=== PATIENT | female | born 1980 ===

== ENCOUNTER 2019-02-10 15:29 | Inpatient (IN) | payer OTHER ==
--- NOTE | 2019-02-10 16:31 | ED PDOC ---
HPI: Psych/Substance Abuse Time Seen by Provider: 02/10/19 15:35 Chief Complaint (Nursing): Psychiatric Evaluation Chief Complaint (Provider): Delusions History Per: Patient History/Exam Limitations: no limitations Additional Complaint(s): Patient is a 38 year old female with no past medical history, who was brought to the emergency department by EMS for delusions. According to EMS, patient was reporting to her obstetrics gyn that there were demons in her home and that her child the obstetrics gyn was taking care of was . Patient denies saying any of this when asked and further denies any suicidal or homicidal ideation, voices in her head, or drug or alcohol use. She further reports that she has not been able to sleep because there are people that are telling her that she is a terrible person and that she is not a good mother. Patient is unable to clarify who these people are however. She further elaborates on having poor sleep because she has two jobs to support her family. Patient has no known history of psychiatric illness. PMD: [place] Past Medical History Reviewed: Historical Data, Nursing Documentation, Vital Signs Vital Signs: Last Vital Signs Temp 98.0 F 02/10/19 15:30 Pulse 98 H 02/10/19 15:30 Resp 16 02/10/19 15:30 BP 134/83 02/10/19 15:30 Pulse Ox 98 02/10/19 15:30 - Medical History PMH: No Chronic Diseases - Surgical History Other surgeries: hysterectomy - Family History Family History: States: No Known Family Hx - Immunization History Hx Tetanus Toxoid Vaccination: No Hx Influenza Vaccination: No Hx Pneumococcal Vaccination: No - Home Medications Home Medications: Ambulatory Orders Medication Instructions Recorded No Known Home Med 02/10/19 - Allergies Allergies/Adverse Reactions: Allergies Allergy/AdvReac Type Severity Reaction Status Date / Time No Known Allergies Allergy Verified 02/10/19 15:30 Review of Systems ROS Statement: Except As Marked, All Systems Reviewed And Found Negative Psych: Positive for: Psychosis. Negative for: Suicidal ideation (homicidal ideation) Physical Exam - Reviewed Nursing Documentation Reviewed: Yes Vital Signs Reviewed: Yes - Physical Exam Appears: Positive for: No Acute Distress Head Exam: Positive for: ATRAUMATIC, NORMOCEPHALIC Skin: Positive for: Warm, Dry Eye Exam: Positive for: EOMI ENT: Positive for: Normal ENT Inspection. Negative for: Pharyngeal Erythema, Tonsillar Exudate Neck: Positive for: Painless ROM, Supple Cardiovascular/Chest: Positive for: Regular Rate, Rhythm. Negative for: Murmur Respiratory: Positive for: Normal Breath Sounds. Negative for: Respiratory Distress Gastrointestinal/Abdominal: Positive for: Soft. Negative for: Tenderness Back: Positive for: Normal Inspection. Negative for: Decreased ROM Extremity: Positive for: Normal ROM. Negative for: Deformity Lymphatic: Negative for: Adenopathy Neurological/Psych: Positive for: Alert, Oriented (x3), Mood/Affect (mood: nor mal/affect: normal), Other (slight delay when answering qauestions but otherwise appears to be no internal stimuli ) - Laboratory Results Result Diagrams: 02/10/19 18:28 02/10/19 18:28 - ECG O2 Sat by Pulse Oximetry: 98 (RA) Pulse Ox Interpretation: Normal Medical Decision Making Medical Decision Making: Time: 1603 Impression: Psychosis --Differential diagnosis includes but is not limited to stress reaction, electrolyte abnormality, intracranial mass, depression, anxiety, or thyroid disorder. Plan: --Alcohol serum --CMP --Magnesium --Phosphorous --Thyroid stimulating hormone --Urine drug screen --Crisis evaluation --ED urine dipstick --CBC with differential Labs demonstrate mild hypokalemia. No clinically significant abnormalities. Medically stable for psychiatric admission Accession No. : [id number] Patient Name / ID : VINICIO DIAZ / [id number] Exam Date : 02/10/2019 17:55:51 ( Approved ) Study Comment : Sex / Age : F / 38Y Creator : Rashaad Boyd MD Dictator : Rashaad Boyd MD Fire Lieutenant Marine : Core Feeder : Rashaad Boyd MD Approver2 : Report Date : 02/10/2019 18:18:55 My Comment : Date of service: 02/10/2019 PROCEDURE: CT HEAD WITHOUT CONTRAST. HISTORY: Altered mental status. COMPARISON: None available. TECHNIQUE: Axial computed tomography images were obtained through the head/brain without intravenous contrast. Supplemental Coronal and Sagittal projections created and reviewed. Radiation dose: Total exam DLP = 686.22 mGy-cm. This CT exam was performed using one or more of the following dose reduction techniques: Automated exposure control, adjustment of the mA and/or kV according to patient size, and/or use of iterative reconstruction technique. FINDINGS: HEMORRHAGE: No intracranial hemorrhage. BRAIN: No mass effect or edema. No atrophy or chronic microvascular ischemic changes. VENTRICLES: Unremarkable. No hydrocephalus. Cavum septum elucidate a/cavum vergae a normal variant. CALVARIUM: Unremarkable. PARANASAL SINUSES: Unremarkable as visualized. No significant inflammatory changes. MASTOID AIR CELLS: Unremarkable as visualized. No inflammatory changes. OTHER FINDINGS: None. IMPRESSION: No acute intracranial abnormalities. No significant findings to account for the clinical presentation. 645p Evaluated by SAMARIA Salazar and SAMARIA Bateman. Pt for admission to psychiatric [facility] t. 830p Pt attempted to leave ER. Multiple attempts to redirect. Threat to self and others due to psychosis. Pt medicated. Scribe Attestation: Documented by Napoleon Lambert, acting as a scribe Sergio Cisneros MD. Provider Scribe Attestation: All medical record entries made by the Scribe were at my direction and personally dictated by me. I have reviewed the chart and agree that the record accurately reflects my personal performance of the history, physical exam, medical decision making, and the department course for this patient. I have also personally directed, reviewed, and agree with the discharge instructions and disposition. Disposition - Clinical Impression Clinical Impression: Psychosis - Disposition Disposition Time: 18:45 Condition: STABLE - Pt Status Changed To: Hospital Disposition Of: Inpatient - Admit Certification Admit to Inpatient:: After my assessment, the patient will require hospitalization for at least two midnights. This is because of the severity of symptoms shown, intensity of services needed, and/or the medical risk in this patient being treated as an outpatient. - POA Present On Arrival: None
--- NOTE | 2019-02-10 18:22 | CT ---
Date of service: 02/10/2019 PROCEDURE: CT HEAD WITHOUT CONTRAST. HISTORY: Altered mental status. COMPARISON: None available. TECHNIQUE: Axial computed tomography images were obtained through the head/brain without intravenous contrast. Supplemental Coronal and Sagittal projections created and reviewed. Radiation dose: Total exam DLP = 686.22 mGy-cm. This CT exam was performed using one or more of the following dose reduction techniques: Automated exposure control, adjustment of the mA and/or kV according to patient size, and/or use of iterative reconstruction technique. FINDINGS: HEMORRHAGE: No intracranial hemorrhage. BRAIN: No mass effect or edema. No atrophy or chronic microvascular ischemic changes. VENTRICLES: Unremarkable. No hydrocephalus. Cavum septum elucidate a/cavum vergae a normal variant. CALVARIUM: Unremarkable. PARANASAL SINUSES: Unremarkable as visualized. No significant inflammatory changes. MASTOID AIR CELLS: Unremarkable as visualized. No inflammatory changes. OTHER FINDINGS: None. IMPRESSION: No acute intracranial abnormalities. No significant findings to account for the clinical presentation.
[2019-02-10 18:41] LABS: BASO % 0.4 % (0.0-2.0); EOS % 0.2 % (0.0-4.0); HEMOGLOBIN 13.7 g/dL (12.0-16.0); LYMPH # 3.3 K/uL (1.0-4.3); LYMPH % 32.2 % (20.0-40.0); MEAN CELL VOLUME 88.6 fl (81.0-99.0); MEAN PLATELET VOLUME 7.7 fl (7.2-11.7); MONO # 0.8 K/uL (0.0-0.8); NEUT % 59.2 % (50.0-75.0); NRBC % 0.1 % (0.0-0.0); RBC 4.41 Mil/uL (3.80-5.20); WHITE BLOOD COUNT 10.1 K/uL (4.8-10.8)
[2019-02-10 18:49] LABS: SQUAMOUS EPITHIAL 6 /hpf (0-5); URINE BACTERIA RARE (<OCC); URINE BILIRUBIN NEGATIVE (NEGATIVE); URINE BLOOD SMALL (NEGATIVE); URINE CLARITY SLIGHTY-CLOUDY (Clear); URINE COLOR YELLOW (YELLOW); URINE GLUCOSE (UA) NEG (NEGATIVE); URINE PROTEIN 30 mg/dL (NEGATIVE); URINE UROBILINOGEN 0.2-1.0 mg/dL (0.2-1.0)
[2019-02-10 18:50] LABS: URINE LEUKOCYTE ESTERASE TRACE Leu/uL (Negative)
[2019-02-10 18:54] LABS: ALB/GLOB RATIO 1.5 (1.0-2.1); ALT/SGPT 40 U/L (9-52); AST/SGOT 40 U/L (14-36); BLOOD UREA NITROGEN 13 mg/dl (7-17); CALCIUM 9.8 mg/dL (8.4-10.2); GFR NON-AFRICAN AMERICAN > 60
[2019-02-10 19:01] LABS: BARBITURATES, UR NEGATIVE (NEGATIVE); BENZODIAZEPINES, UR NEGATIVE (NEGATIVE); OPIATES, UR NEGATIVE (NEGATIVE); PHENCYCLIDINE, UR NEGATIVE (NEGATIVE)
[2019-02-10] MEDS ORDERED: Potassium Chloride 20 mEq ER Tab PO STA (19:18)
[2019-02-10] MEDS ORDERED: Potassium Chloride 20 mEq ER Tab PO ONE (19:53)
[2019-02-10 20:36] VITALS: O2SAT 98
[2019-02-10] MEDS ORDERED: Magnesium Hydroxide Susp 30 ml UD PO PRN (21:53)
[2019-02-10] MEDS ORDERED: DiphenhydrAMINE 50 mg/ml Inj IM PRN (21:53)
[2019-02-10] MEDS ORDERED: Alum-Mag Hydrox-Simethicone Susp (30 mL) PO PRN (21:53)
--- NOTE | 2019-02-10 22:14 | PCM.BM ---
<Orlando Lorenzo P - Last Filed: 02/10/19 22:12> Treatment Plan Problems - Problems identified on initial assessmt Delusions Date Initiated: 02/10/19 Time Initiated: 22:12 Assessment reference: NA Status: Active Guarded Behavior Date Initiated: 02/10/19 Time Initiated: 22:12 Assessment reference: NA Status: Active Alteration in Emotional Status Date Initiated: 02/10/19 Time Initiated: 22:13 Assessment reference: NA Status: Active Treatment assets and liabiliti Patient Assests: cooperative, ADL independent, physically healthy, negotiates basic needs, cognitively intact Patient Liabilities: live alone, poor support system, language/speech - Milieu Protocol Maintain good personal hygiene: daily Encourage regular showers, daily Remind patient to perform daily oral care, daily Assist patient to perform ADL's Conduct patient checks and document Observation sheet: Q15 minutes Maintain personal safety: every shift Educate patient to report safety concerns to staff, every shift Monitor environment for contraband/sharps Medication safety: Monitor for expected outcome, potential side effects: every shift, Assess barriers to learning: every shift, Assess readiness for medication education: every shift <Tammy Davis - Last Filed: 02/12/19 14:32> Treatment assets and liabiliti Patient Assests: adapts well, cooperative, resourceful, self-reliant Patient Liabilities: live alone ( Pt. reports currently residing with her 4 year old daughter.), financial problems, poor support system (Pt. reports family (parents/siblings) reside in [place]. ), language/speech (pt. primarily indonesian speaking ; dcp&p involvment) Family Contact Family involvement: Famliy/SO not involved Family contact: Patient declines to allow family contact at present - Goals for Treatment Patient goals for treatment: Patient to continue stabilization on 3NP through medication management and group/supportive therapy to address sxs of psychosis as exhibited by disorganization, delusional thinking, paranoia, and bizzare bxs. Patient to be encouraged to attend groups regularly to promote self-awareness, reality-orientation, and improve insight, compliance, coping skills and thought process. Patient to be provided with referral for appropriate level of aftercare to reduce risk of future hospitalizations and ensure safety in the community. Pt. currently unable to identify tx goals secondary to decompensated mental health.Tx team to continue to meet with pt. to identify tx goals for hospitalization. Discharge/Continuing Care - Education Needs Education Needs: Patient Medication, Patient Diagnosis/Disease Process, Patient Coping Skills, Patient Community resources, Patient Aftercare Safety Plan - Discharge Discharge Criteria: Tolerates medication w/o severe side effects, Free of paranoid thoughts, Free of agitation, Normal sleep pattern, Ability to care for self, Reduction of target symptoms Discharge to:: Home, Other (OPS/DCP&P) - Treatment Team Participation Patient/Family/SO Statement: 02/12/19 14:32 Patient attended tx team on 02/12 to discuss precursors to hospitalization and tx goals. Pt. oriented to person and time but had to be reminded that she was in a [facility]. Pt. was unable to identify reasons for admission or provide linear collateral regarding events leading to hospitalization. Pt. presented with paranoid delusions, expressing belief that she and her daughter are being poisoned by shelf filler who pt. believes is a demon. Pt. reported having been hospitalized in order to collect papers for [employer]. Pt. presented as disorganized with loose associations and flight of ideas. Speech: pressured and tangential. Pt. religiously preoccupied at times. Pt. denied SI/HI and is able to contract for safety on 3NP. Insight/focus is poor. Coping skills/Judgment grossly impaired. Pt. discharge focused and initially hesitant to begin recommended medications. Pt. ambivalent towards tx but expressed being agreeable once further psychoeducation was provided. Discussed with Family/SO: No Was Patient/Family/SO present at Treatment Team Meeting: Yes <Juan Carlos Mckeon - Last Filed: 02/13/19 11:11> - Diagnosis (1) Psychosis Status: Acute Interventions: start antipsychotic 02/13/19 11:10
--- NOTE | 2019-02-11 08:52 | CARD ---
APPROVED REPORT Date of service: 02/11/2019 EKG Measurement Heart [id number] [id number] <Conclusion> Normal sinus rhythm Normal ECG
[2019-02-11 09:07] LABS: BLOOD UREA NITROGEN 11 mg/dl (7-17); CALCIUM 9.8 mg/dL (8.4-10.2); GFR NON-AFRICAN AMERICAN > 60; HDL CHOLESTEROL 55 MG/DL (30-70)
[2019-02-11 09:20] LABS: LDL CHOLESTEROL 76 mg/dL (0-129)
--- NOTE | 2019-02-11 11:15 | CP.PCM.CON ---
History of Present Illness - History of Present Illness History of Present Illness: MEDICINE CONSULT 38 year old female with no past medical history, was brought to the EDby EMS for delusions. Patient admitted to Psych and Medical consult was placed to evaluate patient. She reports feeling well and denies any active complaints. Denies chest pain, shortness of breath, fevers, chills, nausea, vomiting, abdominal pain, dysuria, frequency or urgency. ROS: negative except for stated above. PMD: [place] PMH: denies Surgical history: hysterectomy in 2016 for unknown reason Social: Drinks 2 alcohol beverages on a weekend. Denies illicit drug use or smoking history. Family History: Denies Allergies: N.K.D.A Medications: No medications Past Patient History - Past Social History Smoking Status: Never Smoked - CARDIAC Other/Comment: denies - PULMONARY Other/Comment: denies - NEUROLOGICAL Other/Comment: denies - HEENT Hx HEENT Problems: No Other/Comment: denies - RENAL Other/Comment: denies - ENDOCRINE/METABOLIC Other/Comment: denies - HEMATOLOGICAL/ONCOLOGICAL Other/Comment: denies - INTEGUMENTARY Other/Comment: denies - MUSCULOSKELETAL/RHEUMATOLOGICAL Other/Comment: denies - GASTROINTESTINAL Other/Comment: denies - GENITOURINARY/GYNECOLOGICAL Hx Sexually Transmitted Disorders: No Other/Comment: denies - PSYCHIATRIC Hx Substance Use: No - SURGICAL HISTORY Hx Surgeries: Yes Hx Hysterectomy: Yes - ANESTHESIA Hx Anesthesia: Yes Hx Anesthesia Reactions: No Hx Malignant Hyperthermia: No Has any member of the family had a problem w/ anesthesia?: No Meds Allergies/Adverse Reactions: Allergies Allergy/AdvReac Type Severity Reaction Status Date / Time No Known Allergies Allergy Verified 02/10/19 15:30 - Medications Medications: Current Medications Acetaminophen (Tylenol 325mg Tab) 650 mg PO Q4 PRN PRN Reason: pain level 4-7 Al Hydrox/Mg Hydrox/Simethicone (Maalox Plus 30 Ml) 30 ml PO Q4 PRN PRN Reason: Dyspepsia Diphenhydramine HCl (Benadryl) 50 mg IM Q6 PRN PRN Reason: Extrapyramidal S/S Unable PO Diphenhydramine HCl (Benadryl) 50 mg PO Q6 PRN PRN Reason: Extrapyramidal Symptoms Last Admin: 02/11/19 08:17 Dose: 50 mg Diphenhydramine HCl (Benadryl) 50 mg PO HS PRN PRN Reason: Sleep Last Admin: 02/11/19 01:13 Dose: 50 mg Haloperidol (Haldol) 5 mg PO Q4 PRN PRN Reason: Agitation Last Admin: 02/11/19 08:17 Dose: 5 mg Haloperidol Lactate (Haldol) 5 mg IM Q4 PRN PRN Reason: Agitation, Unable to Take PO Lorazepam (Ativan) 2 mg IM Q6H PRN PRN Reason: Anxiety/Agitation,Unable PO Lorazepam (Ativan) 1 mg PO Q6H PRN PRN Reason: Anxiety/Agitation Last Admin: 02/11/19 08:17 Dose: 1 mg Magnesium Hydroxide (Milk Of Magnesia) 30 ml PO HS PRN PRN Reason: Constipation Physical Exam - Constitutional Appears: Well, Non-toxic, No Acute Distress - Head Exam Head Exam: NORMAL INSPECTION - ENT Exam ENT Exam: Mucous Membranes Moist - Respiratory Exam Respiratory Exam: Clear to Auscultation Bilateral, NORMAL BREATHING PATTERN. absent: Accessory Muscle Use, Chest Wall Tenderness, Decreased Breath Sounds, Prolonged Expiratory Phase, Rales, Rhonchi, Wheezes, Respiratory Distress, Stridor - Cardiovascular Exam Cardiovascular Exam: REGULAR RHYTHM, +S1, +S2. absent: Clicks, Diastolic murmur, Gallop, Systolic Murmur - GI/Abdominal Exam GI & Abdominal Exam: Normal Bowel Sounds, Soft. absent: Distended, Firm, Rebound, Rigid, Tenderness - Extremities Exam Extremities exam: Positive for: normal capillary refill, normal inspection. Negative for: pedal edema, tenderness, pedal pulses present - Neurological Exam Neurological exam: Alert, Oriented x3 Additional comments: Sleepy secondary to medication given - Psychiatric Exam Psychiatric exam: Normal Affect - Skin Skin Exam: Dry, Intact, Normal Color, Warm Results - Vital Signs Recent Vital Signs: Last Vital Signs Temp 98.3 F 02/11/19 09:00 Pulse 90 02/11/19 09:00 Resp 18 02/11/19 09:00 BP 145/91 H 02/11/19 09:00 Pulse Ox 98 02/10/19 20:36 - Labs Result Diagrams: 02/10/19 18:28 02/11/19 08:00 Labs: Laboratory Results - last 24 hr 02/10/19 02/10/19 02/10/19 18:28 18:28 18:28 WBC 10.1 RBC 4.41 Hgb 13.7 Hct 39.1 MCV 88.6 MCH 31.0 MCHC 35.0 RDW 13.0 Plt Count 308 MPV 7.7 Neut % (Auto) 59.2 Lymph % (Auto) 32.2 [place] % (Auto) 8.0 Eos % (Auto) 0.2 Baso % (Auto) 0.4 Neut # (Auto) 6.0 Lymph # (Auto) 3.3 [place] # (Auto) 0.8 Eos # (Auto) 0.0 Baso # (Auto) 0.0 Sodium 140 Potassium 3.1 L Chloride 103 Carbon Dioxide 25 Anion Gap 15 BUN 13 Creatinine 0.5 L Est GFR ( Amer) > 60 Est GFR (Non-Af Amer) > 60 Random Glucose 97 Calcium 9.8 Phosphorus 3.8 Magnesium 2.2 Total Bilirubin 0.6 AST 40 H ALT 40 Alkaline Phosphatase 73 Total Protein 8.4 H Albumin 5.0 Globulin 3.4 Albumin/Globulin Ratio 1.5 Triglycerides Cholesterol LDL Cholesterol Direct HDL Cholesterol Thyroxine (T4) TSH 3rd Generation 1.39 Urine Color Urine Clarity Urine pH Ur Specific [place] Urine Protein Urine Glucose (UA) Urine Ketones Urine Blood Urine Nitrate Urine Bilirubin Urine Urobilinogen Ur Leukocyte Esterase Urine RBC (Auto) Urine Microscopic WBC Ur Squamous Epith Cells Urine Bacteria Urine Opiates Screen Negative Urine Methadone Screen Negative Ur Barbiturates Screen Negative Ur Phencyclidine Scrn Negative Ur Amphetamines Screen Negative U Benzodiazepines Scrn Negative U Oth Cocaine Metabols Negative U Cannabinoids Screen Negative Alcohol, Quantitative < 10 02/10/19 02/11/19 18:28 08:00 WBC RBC Hgb Hct MCV MCH MCHC RDW Plt Count MPV Neut % (Auto) Lymph % (Auto) [place] % (Auto) Eos % (Auto) Baso % (Auto) Neut # (Auto) Lymph # (Auto) [place] # (Auto) Eos # (Auto) Baso # (Auto) Sodium 136 Potassium 3.4 L Chloride 99 Carbon Dioxide 26 Anion Gap 14 BUN 11 Creatinine 0.5 L Est GFR ( Amer) > 60 Est GFR (Non-Af Amer) > 60 Random Glucose 105 Calcium 9.8 Phosphorus Magnesium Total Bilirubin AST ALT Alkaline Phosphatase Total Protein Albumin Globulin Albumin/Globulin Ratio Triglycerides 40 Cholesterol 154 LDL Cholesterol Direct 76 HDL Cholesterol 55 Thyroxine (T4) 15.0 H TSH 3rd Generation 1.21 Urine Color Yellow Urine Clarity Slighty-cloudy Urine pH 6.0 Ur Specific [place] 1.015 Urine Protein 30 Urine Glucose (UA) Neg Urine Ketones 20 Urine Blood Small Urine Nitrate Negative Urine Bilirubin Negative Urine Urobilinogen 0.2-1.0 Ur Leukocyte Esterase Trace H Urine RBC (Auto) 4 H Urine Microscopic WBC 5 Ur Squamous Epith Cells 6 H Urine Bacteria Rare Urine Opiates Screen Urine Methadone Screen Ur Barbiturates Screen Ur Phencyclidine Scrn Ur Amphetamines Screen U Benzodiazepines Scrn U Oth Cocaine Metabols U Cannabinoids Screen Alcohol, Quantitative Assessment & Plan - Assessment and Plan (Free Text) Assessment: 38 year old female with no past medical history, was brought to the ED by EMS for delusions. Patient admitted to Pysch and Medical consult was placed to evaluate patient. Plan: Admitted to Psycho for psychosis, Medical consult placed. Patient is hemodynamically stable, and no medical problems. Medically stable at this time. Continue management as per psych. Reconsult if needed. Thank you.
[2019-02-11] MEDS ORDERED: Risperidone M TAB 2 MG PO STA (11:58)
--- NOTE | 2019-02-11 15:52 | PCM.PSYCH ---
Initial Psychiatric Evaluation - Initial Psychiatric Evaluation Chief Complaint (in patient's own words): I know they are poisining me and my daughter History of Present Illness and Precipitating Events: pt is 38 ys old female no known previous psychiatric history brought to ER by EMS due to psychotic and disorganized behaviour, pt has not picked up her daughter from baby sister as she thought her daughter is , while she is alive, pt has been noted by iron carrier to be exhibiting disorganized behaviour including collecting water bottles , reporting that her daughter is when she is infront of her, on the unit pt is floridly psychotic stating she is brought to hospital for d rinking chocolate milk, stating the her baby sister and government are against her and her daughter and trying to poison them, pt paranoid delusional religiously preoccupied without insight into illness denied comman hallucinations denied suicidal or homicidal ideation Current Medications: Active Medications Generic Name Dose Route Start Last Admin Trade Name Freq PRN Reason Stop Dose Admin Acetaminophen 650 mg 02/10/19 21:53 Tylenol 325mg Tab PO Q4 PRN pain level 4-7 Al Hydrox/Mg Hydrox/Simethicone 30 ml 02/10/19 21:53 Maalox Plus 30 Ml PO Q4 PRN Dyspepsia Benztropine Mesylate 0.5 mg 02/11/19 22:00 Cogentin PO HS LEIGH Benztropine Mesylate 0.5 mg 02/12/19 09:00 Cogentin PO DAILY LEIGH Diphenhydramine HCl 50 mg 02/10/19 21:53 Benadryl IM Q6 PRN Extrapyramidal S/S Unable PO Diphenhydramine HCl 50 mg 02/10/19 21:53 02/11/19 08:17 Benadryl PO 50 mg Q6 PRN Administration Extrapyramidal Symptoms Diphenhydramine HCl 50 mg 02/10/19 21:57 02/11/19 01:13 Benadryl PO 50 mg HS PRN Administration Sleep Haloperidol 5 mg 02/10/19 21:53 02/11/19 08:17 Haldol PO 5 mg Q4 PRN Administration Agitation Haloperidol Lactate 5 mg 02/10/19 21:53 Haldol IM Q4 PRN Agitation, Unable to Take PO Lorazepam 2 mg 02/10/19 21:53 Ativan IM Q6H PRN Anxiety/Agitation,Unable PO Lorazepam 1 mg 02/10/19 21:53 02/11/19 08:17 Ativan PO 1 mg Q6H PRN Administration Anxiety/Agitation Magnesium Hydroxide 30 ml 02/10/19 21:53 Milk Of Magnesia PO HS PRN Constipation Risperidone 2 mg 02/11/19 22:00 Risperdal M-Tab PO HS LEIGH Risperidone 1 mg 02/12/19 09:00 Risperdal M-Tab PO DAILY LEIGH Trazodone HCl 100 mg 02/11/19 22:00 Desyrel PO HS LEIGH Past Psychiatric History - Past Psychiatric History Explanation of prior treatment: non reported History of ETOH/Drug Use: urine toxicology negative Pertinent Medical Hx (Current Medical&Sleep Prob, Allergies): Allergies Allergy/AdvReac Type Severity Reaction Status Date / Time No Known Allergies Allergy Verified 02/10/19 15:30 No Known Home Med 02/10/19 Mental Status Examination - Personal Presentation Personal Presentation: Looks stated age - Affect Additional comments: labile - Motor Activity Motor Activity: Psychomotor Agitation - Reliability in Providing Information Reliability in Providing Information: Poor, due to alteration in thoughts, Poor, due to altered mood - Speech Speech: Disorganized - Mood Mood: Anxious - Formal Thought Process Formal Thought Process: Delusions, Paranoia, Loosening of associations, Flight of ideas - Obsessions/Compulsions Obsessions: No Compulsions: No - Cognitive Functions Orientation: Person Sensorium: Alert Attention/Concentration: Easily distracted Abstract Thinking: [place] Judgement: Imparied, as evidence by: Poor judgement, Imparied, as evidence by: Lack of insight into illness - Risk Risk: Elopement, Diminished functioning - Strength & Assets Inventory Strength & Assets Inventory: Life experience - Limitations Additional comments: poor social support DSM 5 DX - DSM 5 DSM 5 Diagnosis: psychotic disorder rule out bipolar disorder manic with psychotic features - Recommended/Plan of Treatment Treatment Recommendations and Plan of Treatment: start risperidone and cogenntine attempt to get collateral information' internal medicine consult
[2019-02-11] MEDS: Tmp-Smz 800 mg-160 mg DS Tab PO SCH (21:20)
[2019-02-11] MEDS ORDERED: Risperidone M TAB 2 MG PO SCH (22:00)
[2019-02-12] MEDS: Tmp-Smz 800 mg-160 mg DS Tab PO SCH ×2 (08:44→21:11)
[2019-02-12] MEDS ORDERED: Risperidone M tab 1 MG PO SCH (09:00)
--- NOTE | 2019-02-12 14:16 | PCM.PYCHPN ---
Psychiatric Progress Note - Psychiatric Progress Note Patient seen today, length of contact: pt evaluated discussed with team chart reviewed Patient Chief Complaint: I know he sewing machinist wants to get me Problems Identified/Issues Discussed: pt on evaluation presenting as floridly psychotic , disorganized speech and thought process with spiritism preoccupation, loose association and paranoid delusions , no insight into illness , requesting too be discharged, pt denied command hallucinations, denied suicidal or homicidal ideation Medical Problems: non reported DSM 5 Symptoms Update: psychotic disorder rule out bipolar disorder severe with psychotic features Medication Change: Yes (start haldol) Medical Record Reviewed: Yes Mental Status Examination - Cognitive Function Orientation: Person Attention: Poor Concentration: Poor Association: Loose Fund of Knowledge: Poor Decription of patient's judgement and insights: poor insight and judgment - Mood Mood: Anxious - Affect Additional comments: labile irritable - Speech Speech: Loud - Formal Thought Process Formal Thought Process: Delusions, Paranoia, Loosening of associations, Flight of ideas - Suicidal Ideation Suicidal Ideation: No - Homicidal Ideation Homicidal Ideation: No Goal/Treatment Plan - Goal/Treatment Plan Need for Continued Stay: Remain at risks for inpatient hospitalization, Discharge may exacerbated symptoms Progress Toward Problem(s) and Goals/Treatment Plan: discontinue risperidone start haldol 5mg bid/ cogentin 0.5 follow up on psychopharmacological effects and side effect profile obtain collateral infroamtion
[2019-02-13] MEDS: Tmp-Smz 800 mg-160 mg DS Tab PO SCH ×2 (08:57→21:22)
--- NOTE | 2019-02-13 11:21 | PCM.PYCHPN ---
Psychiatric Progress Note - Psychiatric Progress Note Patient seen today, length of contact: pt evaluated discussed with team chart reviewed Patient Chief Complaint: I want to leave it is all a game Problems Identified/Issues Discussed: pt evaluated with treatment team, continues to be floridly psychotic , with loose association, pt reported she is in the hospital because the floor hand has set up a plan against her, believes that the treatment team is part of the plan and playing games with her, pt requesting to be discharged , signed 48 hour notice, does not believe she needs any treatment and does no believe she needs medications pt denied command hallucinations, denied suicidal or homicidal ideation Medical Problems: non reported DSM 5 Symptoms Update: psychotic disorder rule out bipolar I disorder MRE manic severe with psychotic features Medication Change: Yes (increase haldol) Medical Record Reviewed: Yes Mental Status Examination - Cognitive Function Orientation: Person Attention: Poor Concentration: Poor Association: Loose Fund of Knowledge: Poor Decription of patient's judgement and insights: poor insight and judgment - Mood Mood: Anxious - Speech Speech: Loud - Formal Thought Process Formal Thought Process: Delusions, Paranoia, Loosening of associations, Flight of ideas - Suicidal Ideation Suicidal Ideation: No - Homicidal Ideation Homicidal Ideation: No Goal/Treatment Plan - Goal/Treatment Plan Need for Continued Stay: Remain at risks for inpatient hospitalization, D ischarge may exacerbated symptoms Progress Toward Problem(s) and Goals/Treatment Plan: pt floridly psychotic , requesting to be discharge has no insight into illness, will be referred for screening for involuntary admisssion start haldol 5mg bid/ cogentin 0.5 follow up on psychopharmacological effects and side effect profile obtain collateral infroamtion
[2019-02-14] MEDS: Tmp-Smz 800 mg-160 mg DS Tab PO SCH ×2 (08:36→21:10)
--- NOTE | 2019-02-14 11:32 | PCM.PYCHPN ---
Psychiatric Progress Note - Psychiatric Progress Note Patient seen today, length of contact: pt evaluated discussed with team chart reviewed Patient Chief Complaint: the residential support worker is trying to poison me Problems Identified/Issues Discussed: pt evaluated , continues to present with loose association, floridly psychotic. delusions of persecution towards zuleima campoverde reported she was poisoning her and her daughter , pt religiously preoccupied, has no insight into illness ., requesting to be discharged and state she would not seek treatment or take medications on discharge pt denied command hallucinations, denied suicidal or homicidal ideation Medical Problems: non reported DSM 5 Symptoms Update: bipolar disorder manic severe with psychotic features Medication Change: Yes (increase haldol gradually) Medical Record Reviewed: Yes Mental Status Examination - Cognitive Function Orientation: Person Attention: Poor Concentration: Poor Association: Loose Fund of Knowledge: Poor Decription of patient's judgement and insights: poor insight and judgment - Mood Mood: Anxious - Speech Speech: Loud - Formal Thought Process Formal Thought Process: Delusions, Paranoia, Loosening of associations, Flight of ideas - Suicidal Ideation Suicidal Ideation: No - Homicidal Ideation Homicidal Ideation: No Goal/Treatment Plan - Goal/Treatment Plan Need for Continued Stay: Remain at risks for inpatient hospitalization, Discharge may exacerbated symptoms Progress Toward Problem(s) and Goals/Treatment Plan: pt floridly psychotic , requesting to be discharged has no insight into illness, will be referred for screening for involuntary admission haldol 5mg bid/ cogentin 0.5/ increase gragually follow up on psychopharmacological effects and side effect profile obtain collateral infroamtion
--- NOTE | 2019-02-15 11:45 | RAD ---
Date of service: 02/15/2019 HISTORY: transfer COMPARISON: No prior. TECHNIQUE: 1 view obtained. FINDINGS: LUNGS: No active pulmonary disease. PLEURA: No significant pleural effusion identified, no pneumothorax apparent. CARDIOVASCULAR: No aortic atherosclerotic calcification present. Normal cardiac size. No pulmonary vascular congestion. OSSEOUS STRUCTURES: No significant abnormalities. VISUALIZED UPPER ABDOMEN: Normal. OTHER FINDINGS: None. IMPRESSION: No active disease.
--- NOTE | 2019-02-15 12:37 | PCM.PYCHPN ---
Psychiatric Progress Note - Psychiatric Progress Note Patient seen today, length of contact: pt evaluated discussed with team chart reviewed Patient Chief Complaint: I know it is all a game Problems Identified/Issues Discussed: pt evaluated ,paranoid, angry and irritable, continues to present with loose association, floridly psychotic. delusions of persecution towards obstetrics nurse reported she was poisoning her and her daughter , pt religiously preoccupied, has no insight into illness ., requesting to be discharged and state she would not seek treatment or take medications on discharge pt denied command hallucinations, denied suicidal or homicidal ideation Medical Problems: non reported DSM 5 Symptoms Update: bipolar disorder mre manic severe with psychotic features Medication Change: No Medical Record Reviewed: Yes Mental Status Examination - Cognitive Function Orientation: Person Attention: Poor Concentration: Poor Association: Loose Fund of Knowledge: Poor Decription of patient's judgement and insights: poor insight and judgment - Mood Mood: Anxious - Speech Speech: Loud - Formal Thought Process Formal Thought Process: Delusions, Paranoia, Loosening of associations, Flight of ideas - Suicidal Ideation Suicidal Ideation: No - Homicidal Ideation Homicidal Ideation: No Goal/Treatment Plan - Goal/Treatment Plan Need for Continued Stay: Remain at risks for inpatient hospitalization, Discharge may exacerbated symptoms Progress Toward Problem(s) and Goals/Treatment Plan: pt floridly psychotic , requesting to be discharged has no insight into illness, referred for screening for involuntary admission and accepted , awaiting a bed haldol 5mg bid/ cogentin 0.5/ increase gragually follow up on psychopharmacological effects and side effect profile
--- NOTE | 2019-02-16 10:08 | PCM.PYCHPN ---
Psychiatric Progress Note - Psychiatric Progress Note Patient seen today, length of contact: Pt evaluated, case discussed w/ team, chart reviewed Patient Chief Complaint: Acute psychosis Problems Identified/Issues Discussed: Patient continues to be labile, tangential, paranoid, religiously preoccupied and delusional that someone is trying to harm her child. She was screened and accepted for involuntary psychiatric admission; pending bed and transfer. Medication Change: No Medical Record Reviewed: Yes Consults ordered or reviewed: Medicine consult Mental Status Examination - Cognitive Function Orientation: Person Attention: Poor Concentration: Poor Association: Loose Fund of Knowledge: Poor Decription of patient's judgement and insights: Poor I/J - Mood Mood: Anxious - Speech Speech: Loud - Formal Thought Process Formal Thought Process: Delusions, Paranoia, Loosening of associations, Flight of ideas Psychotic Thoughts and Behaviors: +Paranoid/delusional - Suicidal Ideation Suicidal Ideation: No - Homicidal Ideation Homicidal Ideation: No Goal/Treatment Plan - Goal/Treatment Plan Need for Continued Stay: Remain at risks for inpatient hospitalization, Discharge may exacerbated symptoms Progress Toward Problem(s) and Goals/Treatment Plan: Bipolar Disorder w/ Psychotic Features -Continue current medications -Medicine consult -Transfer to [facility] [place] when bed is available
--- NOTE | 2019-02-16 12:22 | PCM.PYCHDC ---
Mental Status Examination - Mental Status Examination Orientation: Person, Place, Situation, Time Memory: Intact Mood: Anxious Affect: Constricted Speech: Appropriate Attention: Poor Concentration: Poor Association: Loose Fund of Knowledge: Poor Formal Thought Process: Delusions, Paranoia, Loosening of associations, Flight of ideas, Circumstantial Description of patient's judgement and insight: Poor I/J Psychotic Thoughts and Behaviors: +Paranoid/delusional Suicidal Ideation: No Current Homicidal Ideation?: No Discharge Summary - Discharge Note Reason for Hospitalization: As per initial HPI note: pt is 38 ys old female no known previous psychiatric history brought to ER by EMS due to psychotic and disorganized behaviour, pt has not picked up her daughter from baby sister as she thought her daughter is , while she is alive, pt has been noted by early morning babysitter to be exhibiting disorganized behaviour including collecting water bottles , reporting that her daughter is when she is infront of her, on the unit pt is floridly psychotic stating she is brought to hospital for drinking chocolate milk, stating the her baby sister and government are against her and her daughter and trying to poison them, pt paranoid delusional religiously preoccupied without insight into illness denied comman hallucinations denied suicidal or homicidal ideation Consultations:: List each consultation separately and include: 1. Reason for request. 2. Findings. 3. Follow-up Consultations: Medicine consult Summary of Hospital Course include:: 1. Description of specific treatment plan utilized for patients during their course of treatmen. 2. Summarize the time- course for resolution of acute symptoms and/or regressed behaviors. 3. Describe issues identified and worked on during hospitalization. 4. Describe medication utilized. 5. Describe medical problems identified and treated. 6. Reassessment of suicide risk Summary of Hospital Course: Patient was admitted to the psychiatry unit. She was treated w/ Cogentin 0.5 mg PO Q12, Haldol 5 mg PO Q12, Trazodone 100 mg PO HS. She submitted a 48 hr letter, was screened by [facility], accepted for involuntary commitment and will be transferred today as the patient continues to be psychotic, erratic, labile, delusions and disorganized. - Final Diagnosis (DSM 5) DSM 5: Bipolar disorder w/ psychotic features Disposition: Trans to Other Acute Care Hosp Follow-up Treatment Plan: Bipolar Disorder w/ Psychotic Features -Transfer to [facility] for involuntary psychiatric admission - Smoking Cessation Smoking Cessation Medication prescribed: No Reason for not providing: Not indicated - Antipsychotic Medications Pt discharged on 2 or more routine antipsychotic medications: No
[2019-02-16 13:26] VITALS: RESP 18
[2019-02-16 16:53] VITALS: BP 113/72; PULSE 82; TEMP 99.3
== END 2019-02-16 20:55 | DRG 753 ==
LOC: H.ER 15:29 → H.ERHOLD 19:18 → H.PSYCH 21:49
PROVIDERS: ADMIT Psychiatry & Neurology Psychiatry; ATTEND Psychiatry & Neurology Psychiatry
PROC: GZ51ZZZ Individual Psychotherapy, Behavioral (ICD-10-PCS; principal; 2019-02-10)
PROC: GZ56ZZZ Individual Psychotherapy, Supportive (ICD-10-PCS; 2019-02-10)
DX: F31.2 Bipolar disorder, current episode manic severe with psychotic features (principal); F23 Brief psychotic disorder